=== PATIENT | female | born 1935 ===

== ENCOUNTER 2020-10-15 10:45 | Inpatient (IN) | payer OTHER ==
[~2020-10-15] VITALS: Ht 144.8 cm; Wt 56.2 kg
[2020-10-15] MEDS ORDERED: PLAVIX75 MG PO (12:49)
[2020-10-15] MEDS ORDERED: PROBIOTIC1 EAC1 PO (12:49)
[2020-10-15] MEDS ORDERED: FISH OIL PO (12:50)
[2020-10-15] MEDS ORDERED: PRAVAST PO (12:51)
[2020-10-15] MEDS ORDERED: CRAN PO (12:51)
[2020-10-15] MEDS ORDERED: LASIX PO (12:52)
[2020-10-15] MEDS ORDERED: POTAS PO (12:52)
[2020-10-15] MEDS ORDERED: IRON PO (12:52)
[2020-10-15] MEDS ORDERED: HUMULIN N100 UNIT/2 (12:53)
[2020-10-15] MEDS ORDERED: HUMULIN R100 UNIT/1 (12:54)
[2020-10-15] MEDS ORDERED: SINGULAIR10 MG PO (12:54)
[2020-10-15] MEDS ORDERED: CARVEDILOL6.25 MG (16:03)
[2020-10-16] MEDS ORDERED: DEXILANT60 MG (16:00)
[2020-10-16] MEDS ORDERED: FUROSEMIDE20 MG (16:00)
[2020-10-16] MEDS ORDERED: PRAVASTATIN SOD40 MG (16:00)
[2020-10-16] MEDS ORDERED: RESTORIL15 MG (16:00)
[2020-10-16] MEDS ORDERED: FERROUS SULFAT325 MG (16:00)
[2020-10-16] MEDS ORDERED: POTASSIUM CHLOR8 MEQ (16:01)
[2020-10-16] MEDS ORDERED: LOSARTAN POTASS50 MG (16:01)
[2020-10-16] MEDS ORDERED: CLOTRIMAZOLE-BE15 G1 (16:01)
[2020-10-16] MEDS ORDERED: FAMOTIDINE40 MG (16:01)
[2020-10-16] MEDS ORDERED: OMEPRAZOLE40 MG (16:02)
[2020-10-16] MEDS ORDERED: OFLOXACIN5 ML (16:02)
[2020-10-16] MEDS ORDERED: KETOROLAC TROMET5 ML (16:02)
[2020-10-16] MEDS ORDERED: SILVER SULFADIA50 GM (16:02)
[2020-10-16] MEDS ORDERED: ADMELOG100 UNIT/1 (16:03)
[2020-10-16] MEDS ORDERED: FOLIC ACID1 MG (16:03)
[2020-10-16] MEDS ORDERED: ATORVASTATIN CA40 MG (16:03)
[2020-10-16] MEDS ORDERED: B-121000 MC1 (16:03)
[2020-10-16] MEDS ORDERED: SIMVASTATIN20 MG (16:03)
[2020-10-16] MEDS ORDERED: PANTOPRAZOLE SO40 MG (16:04)
[2020-10-16] MEDS ORDERED: POTASSIUM99 M1 PO (16:04)
[2020-10-16] MEDS ORDERED: FISH OIL 1,0001 EAC1 PO (16:04)
[2020-10-16] MEDS ORDERED: IRON18 MG PO (16:05)
== END 2020-10-17 11:23 | disposition home or self-care (01) | DRG 349 ==
LOC: O/R 10-16 05:36 → SURH 10-16 05:36
PROVIDERS: ADMIT Colon & Rectal Surgery; ATTEND Colon & Rectal Surgery
PROC: 0DBP7ZZ Excision of Rectum, Via Natural or Artificial Opening (ICD-10-PCS; principal; 2020-10-16 06:30)
DX: K62.3 Rectal prolapse (principal); R15.9 Full incontinence of feces; D12.8 Benign neoplasm of rectum